=== PATIENT | male | born 1990 | race African-American/Black ===

== ENCOUNTER 2023-11-20 10:52 | Emergency (ER) | payer SELFPAY ==
[~2023-11-20] VITALS: Ht 182.9 cm; Wt 86.0 kg
[2023-11-20 10:55] VITALS: BP 124/70; PULSE 70; RESP 18; O2SAT 98
[2023-11-20 12:16] VITALS: TEMP 98.6
[2023-11-20] MEDS: ACETAMINOPHEN 325MG TABLET PO ONE (12:16)
== END 2023-11-20 12:17 | disposition left against medical advice (07) ==
LOC: ER 10:52
DX: M54.50 Low back pain, unspecified (principal); M79.642 Pain in left hand; V19.49XA Pedal cycle driver injured in collision with other motor vehicles in traffic accident, initial encounter; Y93.89 Activity, other specified; Y92.89 Other specified places as the place of occurrence of the external cause; Y99.8 Other external cause status
CPT/HCPCS: 72100; 73130; 99284